=== PATIENT | male | born 1985 | race Caucasian/White ===

== ENCOUNTER 2023-05-05 06:19 | Day surgery (SDC) | payer OTHER ==
[2023-05-05] MEDS ORDERED: Lactated Ringers 1,000 ML IV SCH (08:00)
[2023-05-05] MEDS ORDERED: CEFAZOLIN 2 GM-D5W BAG** 2 GM/50 ML ML IV SCH (08:00)
[2023-05-05] MEDS ORDERED: Naropin 0.5% 30 ML VIAL ONE (08:36)
[2023-05-05] MEDS ORDERED: Marcaine 0.5%/Epinephrine 10 ML ONE (08:36)
[2023-05-05] MEDS ORDERED: Xylocaine-Mpf 2% 5 Ml Vial ONE (08:36)
[2023-05-05] MEDS ORDERED: Versed 2 MG/2 ML Injection ONE ×2 (08:37→09:11)
[2023-05-05] MEDS ORDERED: DIPRIVAN 200 MG/20 ML IV ONE (09:10)
[2023-05-05] MEDS ORDERED: SUBLIMAZE 100 MCG/2 ML ONE (09:12)
[2023-05-05] MEDS ORDERED: Zemuron 100 MG/10 ML ONE ×2 (09:13→12:45)
[2023-05-05] MEDS ORDERED: Zofran 4 MG/2 ML VIAL ONE ×2 (10:00→14:37)
[2023-05-05] MEDS ORDERED: BRIDION 200MG/2ML IV ONE (10:00)
[2023-05-05] MEDS ORDERED: Decadron 4 MG INJ ONE (10:00)
[2023-05-05] MEDS ORDERED: Ephedrine Sulfate 50 MG/ML ONE (10:48)
--- NOTE | 2023-05-05 13:32 | XRAY ---
Indication: Right gastrocnemius recession. Medial calcaneal displacement osteotomy. Owen calcaneal osteotomy. Deltoid ligament reconstruction. Posterior tibial tendon debridement with advancement. Cotton osteotomy. Intraoperative fluoroscopy provided for 7 minutes 48 seconds. 55 digital spot images submitted for interpretation ultimately demonstrates osteotomy mid calcaneus with 2 fixation screws. Correlate with intraoperative findings/report.
[2023-05-05] MEDS ORDERED: Compazine 10 MG/2 ML ONE (14:49)
[2023-05-05 15:04] LABS: Bacteria None Seen /HPF (None Seen); Bilirubin Negative (Negative); Blood Negative (Negative); Epithelial Cells None Seen /HPF (None Seen); Glucose, Urine Negative (Negative); Hyaline Casts NONE SEEN /LPF (0-2); Ketones Negative (Negative); Leukocyte Esterase Negative (Negative); Nitrite Negative (Negative); Protein,Urine Dip Trace (Negative); RBC 0-2 /HPF (0-5); Specific Gravity 1.025 (1.005-1.030)
[2023-05-05 15:05] LABS: Appearance Clear (Clear)
[2023-05-05 15:48] VITALS: RESP 18
[2023-05-05 16:25] VITALS: TEMP 98.2; O2SAT 95
[2023-05-05 16:45] VITALS: BP 161/70; PULSE 83
--- NOTE | 2023-05-08 10:31 | OP ---
SURGERY DATE/TIME: 05/05/2023 0922 PREOPERATIVE DIAGNOSES: 1) Gastrocnemius equinus, right. 2) Pes planus. 3) Calcaneal valgus. 4) Deltoid insufficiency. 5) Posterior tibial tendon dysfunction. 6) Accessory navicular. 7) Forefoot varus. 8) Right foot pain. 9) Left foot pain. POSTOPERATIVE DIAGNOSES: 1) Gastrocnemius equinus, right. 2) Pes planus. 3) Calcaneal valgus. 4) Deltoid insufficiency. 5) Posterior tibial tendon dysfunction. 6) Accessory navicular. 7) Forefoot varus. 8) Right foot pain. 9) Left foot pain. PROCEDURES: 1) Gastrocnemius resection. 2) Bone marrow aspirate harvest right lower extremity. 3) Medial calcaneal displacement osteotomy, right. 4) Onur calcaneal osteotomy. 5) Deltoid ligament repair. 6) Excision of accessory navicular. 7) Posterior tibial tendon repair with advancement. 8) Cotton osteotomy, right. SURGEON: Kevin Willingham DPM. YARN TEXTURE MACHINE OPERATOR: None. ANESTHESIA: General plus a preoperative popliteal and saphenous block. HEMOSTASIS: Thigh tourniquet set to 350 mm of Mercury for 135 minutes total tourniquet time with a 20 minute break at the two hour agnes. ESTIMATED BLOOD LOSS: Less than 150 cc. MATERIALS: Two - 6.5 headless screws 50 mm and 44 mm in length, a 10 mm Allograft for the Onur calcaneal Allograft with bone marrow aspirate, a 2.9 JuggerKnot with BroadBand for the deltoid repair, two - 1.5 JuggerKnot with BroadBand for the posterior tibial tendon repair with advancement and an 8 mm Allograft for the Cotton osteotomy. INJECTABLES: See anesthesia report for details. INDICATION FOR SURGERY: Chino is a very pleasant 37-year-old male well known to my service since seeing him back in October of this year for concerns over a painful flat foot. The patient presented with pain over the plantar arch and the lateral aspect of the right rear foot. As a result on clinical examination it was determined that the patient does have significant pes planus with accessory navicular as well as posterior tibial tendon dysfunction. The patient has been treated from a conservative standpoint with another provider for an extended period of time and was planned to undergo surgical intervention. However, the plan that was discussed proceeding with a talonavicular joint arthrodesis. The patient did not like the idea of having any of his joints fused so he sought out a second opinion. At this time the patient's flat foot does appear to be flexible in nature as he is able to perform single and double heel raise and heels invert past the midline. On clinical examination, he is easily manipulatable and on radiograph does have some abduction, adduction properties around the talonavicular joint. Discussion with the patient in regards to treatment options and we both agreed that joint salvage procedures were appropriate for him based on age and fact that he does have a flexible flat foot. The talonavicular joint does look to some degree arthritic but I do believe that it mobilizes without much stress and leaving this joint potentially could lead to some results that are favorable. However, no guarantees were provided as to the outcome. The patient understands all risks, benefits and complications of surgical intervention at this time including but not limited to infection, hematoma, seroma, possibility of delayed wound healing, nonwound healing, possibility of delayed bone healing and nonbone healing and a situation called nonunion. There is a possibility of neurovascular damage however care will be taken to prevent any of the most concerning and any case is a potential for a deep vein thrombosis and subsequent pulmonary embolism for which the patient is being prophylaxed against the potential of, however this is not a guarantee. With all of these complications and risks discussed, the patient agreed to proceed. Plenty of time was allowed for the patient to ask questions which were answered to his apparent satisfaction and at this time we proceed. DESCRIPTION OF PROCEDURE AND FINDINGS: The patient is brought into the postoperative anesthesia care unit prior into the OR and provided popliteal and saphenous blocks. See anesthesia report for details. At this time the patient was then brought into the OR and placed on the OR table in the supine position. General anesthesia was administered until the patient was sedated. A well-padded thigh tourniquet was applied to the patient's right thigh and the tourniquet was set to 350 mm of Mercury. At this time the right lower extremity was prepped and draped in the typical sterile fashion and lowered onto the surgical field. From that standpoint, attention was directed to the palpable dell just at the posterior medial aspect of the right calf at the gastrocnemius muscle belly. At this time a linear incision was made and blunt dissection was carried down insuring not to damage any neurovascular structures along the way. The crural fascia was then identified and incised utilizing a 15 blade. Blunt dissection was carried to the posterior aspect of the calf where the gastrocnemius aponeurosis was identified. From that standpoint a pediatric speculum was introduced into the posterior aspect of the surgical wound this was rotated 90 degrees and excellent visualization of the gastrocnemius aponeurosis then took place. At this time, a 10 blade was utilized to resect the aponeurosis without damaging the underlying muscle belly. Copious amounts of sterile saline were utilized to flush the surgical site. 2-0 Vicryl was then utilized to coapt the subcutaneous edges in a simple buried interrupted-type fashion and then 3-0 Monocryl was utilized in a horizontal mattress-type fashion to coapt the skin edges. Following this under fluoroscopic guidance, a stab incision was made at the safe zone of distal aspect of the calcaneus. Following this a blunt trocar was introduced with a fine obturator. The obturator was then removed navigating the bone and bone marrow aspirate was harvested at this time. From that standpoint, four small poke holes were made under fluoroscopic guidance surrounding the lateral and unilateral of the posterior calcaneus. A Gigli saw was then introduced and after blunt dissection carrying the Gigli saw as close to the bone as possible without damaging neurovascular structures or soft tissue. Once looped around the calcaneus it exited on the plantar medial aspect of the rear foot. Under fluoroscopic guidance and under live view, the Gigli saw was pulled from side to side in order to perform internal amputation of the calcaneus. At this time two - 6.5 x 50 headless compression screw and a 6.5 x 44 headless compression screw were introduced as the calcaneus was displaced medially approximately 10 mm. From that standpoint under fluoroscopic guidance planning was made for the calcaneal osteotomy. The anterior process and the calcaneocuboid joint was identified. The calcaneocuboid joint was pinned and then the incision was made revealing the lateral anterior process of the calcaneus. From that standpoint the peroneal tendons were freed from all soft tissue attachments and pulled distally. A perpendicular osteotomy was made utilizing a 31 mm sagittal saw and then osteotomes of varying sizes were utilized to finish the osteotomy without breaking through the medial cortex. Once gapped open a laminar process development technician was placed in, this did give adequate adduction of the forefoot and after trial a 10 mm Allograft was then placed after being soaked in bone marrow aspirate into the deficit. The position of the foot was significantly improved from the pes planus appearance initially. At this time attention was directed to the ankle joint where at the medial aspect of the ankle joint a linear incision was made just about the distal tip of the anterior colliculus of the medial malleolus. Sharp and blunt dissection was carried down to the level of the superficial deltoid. From this standpoint, the deltoid was released at the deep and superficial locations being careful not to damage any neurovascular structures that ran underneath the medial malleolus posteriorly. From that standpoint approximately 5 mm resection of the deltoid was performed and a 2.9 JuggerKnot with BroadBand was introduced into the distal tip of the medial malleolus reaping the deltoid ligament into the footprint of the medial malleolus and closing down the deltoid insufficiency. Varus stress test was performed deeming no residual varus deformity of the ankle joint. Following this the posterior tibial tendon was then identified and incision was carried down making sure not to damage any neurovascular structures to remove the tendon sheath which was significantly tenosynovitic. From that standpoint the accessory navicular was removed. The distal portion of the posterior tibial tendon was diseased however this was not more than 50% of the tendons width. From that point a 15 blade was utilized to resect any diseased portion of the tendon centrally and then an all inside approach for repair of the tendon was performed utilizing TDS suture. Following this, the accessory navicular was removed and was planed for any irritating sharp edges. From that standpoint, two - 1.5 JuggerKnots were introduced into the freshly prepared navicular tuberosity and the tendon then reached into footprint of the navicular. Any prominences were then shaved down utilizing an oscillating rasp. Copious amounts of sterile saline were utilized to flush the surgical site at this time. While loading the foot, there was still some residual forefoot varus and the decision was made to proceed with the Cotton osteotomy. At this time the osteotomy took place under careful retraction of the extensor hallucis longus. Once the osteotomy was made an 8 mm Allograft was then introduced into the first metatarsal towards the weightbearing surface and resulting in a primus elevatus that was previously identified. Following this copious amounts of sterile saline were utilized to flush the surgical site. All surgical sites were then coapted utilizing 4-0 Monocryl in a simple interrupted buried-type fashion and then 3-0 Nylon was utilized in a horizontal mattress-type fashion coapting the skin edges in everted fashion. Following this, the leg was cleansed. A dressing consisting of Betadine, Adaptic, 4x4, Kerlix and a well-padded posterior splint with Sugar-Tong applied to the patient's right lower extremity with the foot orthogonal relative to longitudinal aspect of the tibia. Final shots were taken prior to the dressing placed. The patient was then reversed from anesthesia and returned to the postoperative anesthesia care unit with vital signs stable and vascular status intact. The patient handled the anesthesia as well as the procedure without significant complication. Postoperative orders as indicated in the patient's discharge chart.
--- NOTE | 2023-05-08 10:46 | XRAY ---
Seven minutes and 48 seconds of fluoroscopy was used in surgery for a right gastrocnemius recession. Medial calcaneal displacement osteotomy. Owen calcaneal osteotomy. Deltoid ligament reconstruction. Posterior tibial tendon debridement with advancement. Cotton osteotomy.
== END 2023-05-05 16:45 | disposition home or self-care (01) ==
LOC: SDC 06:19
PROVIDERS: ATTEND Podiatrist Foot & Ankle Surgery
DX: Q66.91 Congenital deformity of feet, unspecified, right foot (principal); S93.421A Sprain of deltoid ligament of right ankle, initial encounter; M76.821 Posterior tibial tendinitis, right leg; M79.671 Pain in right foot; M79.672 Pain in left foot
CPT/HCPCS: 27687; 27698; 28238; 28300; 28304; 38220; 73630; 76000; 81001; 87086; C1713; C1889; J0690; J1100; J2250; J2405; J2704; J2795; J3010

== ENCOUNTER 2023-10-12 10:06 | Day surgery (SDC) | payer OTHER ==
[2023-10-12] MEDS ORDERED: EXPAREL 133 MG/10 ML VIAL IJ ONE (10:07)
[2023-10-12 10:25] VITALS: RESP 18
[2023-10-12] MEDS ORDERED: Transderm Scop 1.5MG Patch TOP PRN (10:56)
[2023-10-12] MEDS ORDERED: Pepcid 20 MG VIAL IV ONE ×2 (10:56→10:57)
[2023-10-12] MEDS ORDERED: Reglan 10 MG/2 ML IV ONE (10:56)
[2023-10-12] MEDS ORDERED: Transderm Scop 1.5MG Patch ONE (10:57)
[2023-10-12] MEDS ORDERED: Reglan 10 MG/2 ML ONE (10:57)
[2023-10-12] MEDS ORDERED: CEFAZOLIN 2 GM-D5W BAG** 2 GM/50 ML ML IV SCH (11:00)
[2023-10-12] MEDS ORDERED: Lactated Ringers 1,000 ML IV SCH (11:00)
[2023-10-12 11:02] LABS: Hematocrit 44.9 % (42-50); Hemoglobin 15.3 g/dL (12.5-18.0); Mean Cell Volume 86.3 fL (78-100); Mean Corpuscular Hemoglobin 29.4 pg (26-32); Mean Corpuscular Hgb Concent. 34.1 g/dL (32-36); Mean Platelet Volume 10.1 fL (7.5-11.0); Platelet Count 202 x10^3/uL (150-450); Red Cell Distribution Width 12.5 % (11.5-14.0); White Blood Count 6.5 x10^3/uL (4.0-10.5)
[2023-10-12] MEDS ORDERED: Epinephrine Preservative Free 1 MG/ML ONE (11:06)
[2023-10-12] MEDS ORDERED: Zemuron 100 MG/10 ML ONE (11:10)
[2023-10-12] MEDS ORDERED: Xylocaine-Mpf 2% 5 Ml Vial ONE (11:10)
[2023-10-12] MEDS ORDERED: Zofran 4 MG/2 ML VIAL ONE (11:10)
[2023-10-12] MEDS ORDERED: DIPRIVAN 200 MG/20 ML IV ONE ×2 (11:10→13:15)
[2023-10-12] MEDS ORDERED: Decadron 4 MG INJ ONE (11:10)
[2023-10-12] MEDS ORDERED: TORAdol 30 mg Injection ONE (11:10)
[2023-10-12] MEDS ORDERED: DEXMEDETOMIDINE 80 MCG/20ML-NS IV ONE (11:10)
[2023-10-12] MEDS ORDERED: SUBLIMAZE 100 MCG/2 ML ONE (11:11)
[2023-10-12] MEDS ORDERED: Versed 2 MG/2 ML Injection ONE ×2 (11:11)
[2023-10-12 11:14] LABS: ALBUMIN 4.6 g/dL (3.5-5.0); ANION GAP 10.8 MEQ/L (5-15); Calcium 9.8 mg/dL (8.4-10.2); Creatinine 1 0.88 mg/dL (0.66-1.25); EST GLOMERULAR FILTRATION RATE 114.3 ML/MIN; Potassium 4.4 mmol/L (3.5-5.1); Total Protein 7.9 g/dL (6.3-8.2)
[2023-10-12 11:16] LABS: INR 0.98 (0.8-3.0); PROTIME 10.7 SECONDS (9.4-12.5); PTT 27.9 SECONDS (25.1-36.5)
[2023-10-12] MEDS ORDERED: Pre-Attached Lta Kit TP ONE (12:21)
[2023-10-12] MEDS ORDERED: OFIRMEV 100 ML IV ONE (12:21)
[2023-10-12] MEDS ORDERED: Marcaine Mpf 0.5% Vial 30 Ml ONE (12:21)
[2023-10-12] MEDS ORDERED: Ephedrine Sulfate 50 MG/ML ONE (13:47)
[2023-10-12] MEDS ORDERED: ATROPINE SULFATE 1MG ONE (13:50)
[2023-10-12] MEDS ORDERED: Lactated Ringers 1,000 ML IV ONE (13:55)
[2023-10-12] MEDS ORDERED: REMIFENTANIL HCL IV ONE (15:42)
[2023-10-12] MEDS ORDERED: BRIDION 200MG/2ML IV ONE (16:25)
--- NOTE | 2023-10-12 16:37 | XRAY ---
Indication: Right ankle arthroscopy with synovectomy and allograft deltoid ligament reconstruction. Intraoperative fluoroscopy provided for 8 minutes 55 seconds. Initial 25 digital spot images submitted for interpretation demonstrates instrumentation medial ankle. 2 calcaneal screws and single lateral calcaneal orthopedic button inserted. Lastly, 3 cinematic images demonstrates manipulation of ankle. Correlate with intraoperative findings/report.
[2023-10-12 18:11] VITALS: O2SAT 95
[2023-10-12 18:25] VITALS: TEMP 98.3
[2023-10-12 18:28] VITALS: BP 132/72; PULSE 86
--- NOTE | 2023-10-13 09:42 | XRAY ---
8 minutes and 55 seconds of fluoroscopy was used in surgery for a right ankle arthroscopy with synovectomy and allograft deltoid ligament reconstruction.
--- NOTE | 2023-10-18 15:23 | OP ---
SURGERY DATE/TIME: 10/12/2023 4268 PREOPERATIVE DIAGNOSES: 1) Right ankle pain. 2) Ankle synovitis with ankle joint effusion. 3) Deltoid insufficiency. POSTOPERATIVE DIAGNOSES: 1) Right ankle pain. 2) Ankle synovitis with ankle joint effusion. 3) Deltoid insufficiency. PROCEDURE: 1) Right ankle arthroscopy with complete synovectomy. 2) Deltoid ligament reconstruction. SURGEON: Kevin Willingham DPM. CLOCK AND WATCH HANDS PAINTER: None. ANESTHESIA: General plus a preoperative block. See anesthesia report for details. HEMOSTASIS: Thigh tourniquet set to 300 mm of Mercury for approximately 115 total tourniquet minutes. ESTIMATED BLOOD LOSS: Approximately 20 cc. MATERIALS: Andreina ToggleLoc with ZipLoop, an 8 x 16 Quattro [place], another ToggleLoc with ZipLoop as well as 125 x 6 mm Allograft tendon for deltoid reconstruction, 4-0 Monocryl, 3-0 Nylon. INJECTABLES: See anesthesia report for details. INDICATION FOR SURGERY: Chino is a very pleasant 37-year-old male who underwent a flat foot reconstruction earlier this year. Initially with the procedure, the patient did have a number of procedures performed that were joint sparing that allowed for his foot to fall into a more normal orientation and keep some pressure off of the posterior tibial tendon. There was a portion of the procedure that was performed utilizing suture to repair the deltoid ligament and when tested was sufficient intraoperatively on the previous operation. However as the patient began weightbearing and returned to daily activity and normal shoe wear, he did notice that his foot started to splay at the level of the ankle once again everting. This was assessed and clinically demonstrated to be adequate at the level of the foot with repronation of the longitudinal arch with clinical examination. However, there was some significant indications of deltoid insufficiency which was putting unnecessary pressure back on the posterior tibial tendon after repair and continuing similar pain however different. Decision was held to proceed with surgical intervention to which the patient was amenable. Because of the degree of insufficiency, options were discussed with the patient in regards to what should be done in order to insure better outcome on this specific procedure. The patient understands all risks, complications and benefits of surgical intervention at this time including but not limited to infection, hematoma, seroma, possibility of delayed wound healing, nonwound healing and possible failure of surgical intervention. No guarantees were provided as to the outcome of surgical intervention. Plenty of time was allowed for the patient to ask questions which were answered to his apparent satisfaction. It is at this time we decided to proceed. DESCRIPTION OF PROCEDURE AND FINDINGS: The patient is brought into the OR and placed on the OR table in the supine position. General anesthesia was administered. A well-padded thigh tourniquet was applied to the patients right thigh and set 300 mm of Mercury. At this time right lower extremity was prepped and draped in the typical sterile fashion and lowered onto the surgical field. At this time, attention was directed to the medial and lateral malleolus as well as the palpable dell at the anterior aspect of the ankle with the foot dorsiflexed. The landmarks were identified. The tibialis anterior was also identified and this help establish our anteromedial and anterolateral portal sites. An 18 gauge needle with 50 cc of lactated Ringer's was injected only taking approximately 30 cc of the fluid at the anteromedial portal site and then 11 blade was utilized to make a skin incision. Blunt dissection was carried down to the level of the capsule which was fenestrated utilizing a blunt curved mini-Hidalgo. From that standpoint, an obturator with trocar was introduced. The obturator was then removed and the 30 degree 4.0 mm camera arthroscope was introduced for initial inspection of the joint. At this time, a significant amount of synovitis was identified at the medial and lateral aspects of the talar dome this was cleaned up extensively paying more attention to the medial aspect where the deltoid ligament was encountered demonstrating some attenuation however not full through and through tear at least obvious tear from that standpoint. At this time the portals were switched and the majority of the cleaning of the joint was performed at the medial aspect of the joint cleaning out any synovitis that was far posterior. Due to the deltoid insufficiency, we were able to reach the posterior aspect of the joint at the medial aspect. At this time the joint was probed for any osteochondral defects of which none were found. No delaminations were encountered. However, extensive synovectomy was identified and cleaned. Final pictures were taken. At this time under fluoroscopic guidance, the deltoid ligament was stressed under fluoro and deemed to be widely incompetent. From that standpoint decision was made to proceed with deltoid repair. At this time Esmarch was utilized to exsanguinate the leg and tourniquet was inflated. From this standpoint a 10 blade was utilized to make an incision along the footprint of the same incision that was used previously. Extensive scar tissue was identified especially surrounding the posterior tibial tendon which was removed extensively, carefully dissection was carried down to the level of the medial malleolus where our initial drill hole was made utilizing a 6 mm drill going obliquely from a distal medial to proximal lateral orientation going through and through with an over drill and under drill utilizing the ToggleLoc and 125 x 6 mm tendon. The tendon was pulled through the site and the ToggleLoc was utilized to gain adequate stability of this portion of the ligament. Following this, dissection was carried to the anteromedial aspect of the talus where the connecting point of the talar neck and the body was identified under lateral and AP foot view. Once the position was identified making sure not to drill into any articular surfaces, this was carried down. A whipstitch was placed onto the tendon after measuring the adequate amount of tendon to be entered into the talus which was then anchored utilizing a 16 mm Quattro [place]. After this, careful dissection was carried down to the medial aspect of the sustentaculum bulmaro. Given the size of the tendon and the size of the patient decision was made to just go posterior to the sustentaculum bulmaro to prevent any irritation over this site and drilling through carefully protecting neurovascular bundle in this site. From that standpoint, the remainder of the tendon was measured, cut, whipstitched and then passed through the calcaneus utilizing another ToggleLoc to gain adequate compression through this site. Following this, tension was applied to the initially placed ToggleLoc within the medial malleolus. Adequate compression and the foot was held in an inverted and corrected position at the level of the ankle. Following this the ToggleLoc was tightened until tension on the tendon was sufficient to sustain stress testing to the deltoid ligament with ankle varus stress test. Following this, copious amounts of sterile saline were utilized to flush the surgical site. Following this, 4-0 Monocryl was utilized to repair the subcutaneous skin edges. Tourniquet was let down at 115 total tourniquet minutes. 3-0 Nylon was then utilized in a horizontal mattress type fashion to coapt the skin edges in everted-type fashion. The arthroscopic holes were closed utilizing horizontal mattress 3-0 Nylon. Following this, a dressing consisting of Iodine, Adaptic, 4x4, Kerlix and a well-padded posterior splint with Sugar-Tong was applied to the patient's right ankle with his foot orthogonal and slightly inverted at the level of the ankle. The patient was then reversed from anesthesia and returned to the postoperative anesthesia care unit with vital signs stable and vascular status intact. The patient handled the anesthesia as well as the procedure without significant complication. Postoperative orders as indicated in the patient's discharge chart.
== END 2023-10-12 18:40 | disposition home or self-care (01) ==
LOC: SDC 10:06
PROVIDERS: ATTEND Podiatrist Foot & Ankle Surgery
DX: M65.871 Other synovitis and tenosynovitis, right ankle and foot (principal); M25.471 Effusion, right ankle; M25.571 Pain in right ankle and joints of right foot; S93.421A Sprain of deltoid ligament of right ankle, initial encounter
CPT/HCPCS: 27698; 29898; 36415; 73610; 76000; 76937; 80053; 85027; 85610; 85730; C1713; C1762; C1769; J0171; J0461; J0690; J1100; J1885; J2250; J2405; J2704; J3010; A9270-GY